=== PATIENT | female | born 1995 | race African-American/Black ===

== ENCOUNTER 2016-10-16 22:22 | Emergency (ER) | payer OTHER | END 2016-10-16 23:09 | disposition home or self-care (01) | LOC: ER 22:22 | DX: J02.9 Acute pharyngitis, unspecified (principal); H65.92 Unspecified nonsuppurative otitis media, left ear; Z88.2 Allergy status to sulfonamides; Z88.1 Allergy status to other antibiotic agents | CPT/HCPCS: 99282 ==